=== PATIENT | male | born 1980 | race Caucasian/White ===

== ENCOUNTER 2017-09-05 08:44 | Emergency (ER) | payer OTHER ==
[~2017-09-05] VITALS: Ht 177.8 cm; Wt 66.9 kg
[2017-09-05 08:52] VITALS: BP 124/68
--- NOTE | 2017-09-05 09:14 | NUR ---
Patient slowly ambulated to bed 08.
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
--- NOTE | 2017-09-05 09:21 | NUR ---
Patient being evaluated by DR KOLB at bedside.
[2017-09-05] MEDS ORDERED: KETOROLAC 30 MG/ML VIAL IM ONE (09:25)
--- NOTE | 2017-09-05 09:26 | NUR ---
Nate vargas in ED - 09/05/17 at 1025 by MED1 X RAY AT BEDSIDE.
[2017-09-05 09:34] LABS: APPEARANCE,URINE HAZY (CLEAR); BILIRUBIN,URINE 1+ (NEGATIVE); BLOOD, URINE 3+ (NEGATIVE); COLOR,URINE BROWN (YELLOW); LEUKOCYTE ESTERASE ,URINE NEGATIVE (NEGATIVE); NITRITE, URINE NEGATIVE (NEGATIVE); UGLUCOSE NEGATIVE (NEGATIVE)
[2017-09-05 09:44] LABS: RBC,URINE >100 /HPF (0-5); WBC,URINE 0-5 (RARE) /HPF (0-5)
[2017-09-05 09:54] LABS: HEMATOCRIT 37.4 % (36-52); HEMOGLOBIN 12.4 g/dL (12.0-18.0); MEAN CORPUSCULAR HEMOGLOBIN 29 pg (27-31); MEAN CORPUSCULAR HGB CONC 33 g/dL (33-37); MEAN CORPUSCULAR VOLUME 86 fL (80-94); PLATELET COUNT (AUTO) 285 K/uL (140-450); RED BLOOD CELL COUNT(AUTO) 4.35 MIL/uL (4.20-6.10); RED CELL DISTRIBUTION WIDTH 15.2 % (11.6-13.7)
[2017-09-05 10:00] LABS: ANION GAP 6.4 (8-16); CARBON DIOXIDE 31.8 mmol/L (21-32); CREATININE 1.1 mg/dL (0.7-1.3); POTASSIUM 4.2 mmol/L (3.5-5.1)
[2017-09-05 10:06] LABS: ALBUMIN 3.3 g/dL (3.4-5.0); TOTAL BILIRUBIN 0.6 mg/dL (0.0-1.0)
[2017-09-05 10:07] LABS: PROTHROMBIN TIME 11.5 secs (10.8-13.4)
[2017-09-05 10:13] LABS: LYMPHOCYTES % (MANUAL) 14 % (20-46); MONOCYTES % (MANUAL) 6 % (5-12)
--- NOTE | 2017-09-05 10:26 | NUR ---
PT TAKEN TO CT VIA [facility], ACCOMPANIED BY ALTERNATIVE ENERGY TECHNICIAN.
[2017-09-05 11:10] VITALS: BP 119/71
--- NOTE | 2017-09-05 11:10 | NUR ---
Patient discharged with v/s stable. Written and verbal after care instructions given and explained. Patient alert, oriented and verbalized understanding of instructions. Ambulatory with steady gait. All questions addressed prior to discharge. ID band removed. Patient advised to follow up with PMD. Rx of NAPROXYN & NORCO given. Patient educated on indication of medication including possible reaction and side effects. Opportunity to ask questions provided and answered.
== END 2017-09-05 11:10 | disposition home or self-care (01) ==
LOC: MED 08:44
DX: M54.2 Cervicalgia (principal); M25.512 Pain in left shoulder; R31.9 Hematuria, unspecified; N20.0 Calculus of kidney
CPT/HCPCS: 36415; 70450; 71010; 72125; 73030; 74176; 80053; 81001; 85025; 85610; 96372; 99285; J1885; Q0092